=== PATIENT | male | born 2000 | race American Indian/Alaskan Native ===

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

== ENCOUNTER 2020-01-07 03:52 | Emergency (ER) | payer OTHER ==
[2020-01-07 03:57] VITALS: BP 127/74; PULSE 73
[2020-01-07] MEDS ORDERED: MVI, Adult with Vitamin K 10 ML, Folic Acid 1 MG, Thiamine 100 MG in Lactated Ringers 1... IV ONE ×4 (04:04)
[2020-01-07 04:48] LABS: ANION GAP 16.4 mEq/L (7-13); CHLORIDE,CL 107 mmol/L (98-107); SODIUM,NA 147 mmol/L (136-145)
[2020-01-07 04:54] LABS: ACETAMINOPHEN 0 ug/mL (10-30 (Therapeutic))
--- NOTE | 2020-01-07 06:31 | EDM.PDOCBH ---
<Lucrecia Modi - Last Filed: 01/07/20 06:25> ED HPI GENERAL MEDICAL PROBLEM - General Chief Complaint: Behavioral/Psych Stated Complaint: AMBULANCE Time Seen by Provider: 01/07/20 04:05 Source of Information: Reports: Patient, EMS, RN History Limitations: Reports: Intoxication - History of Present Illness INITIAL COMMENTS - FREE TEXT/NARRATIVE: ED via [facility] report of intoxication and having suicidal thoughts for past 2 weeks. Patient has no immediate paln admits dring two Halves the past couple of days and doesn't usually drink. Denied other drug use. Does not answer if previous attempts. - Related Data Allergies Allergy/AdvReac Type Severity Reaction Status Date / Time No Known Allergies Allergy Verified 01/07/20 03:58 Home Meds: Home Meds . [No Known Home Meds] 02/09/15 [History] Past Medical History - Past Health History Medical/Surgical History: Denies Medical/Surgical History HEENT History: Reports: None Cardiovascular History: Reports: None Respiratory History: Reports: None Gastrointestinal History: Reports: None Genitourinary History: Reports: None Musculoskeletal History: Reports: None Other Musculoskeletal History: states prior injury to left shoulder from football Neurological History: Reports: None Psychiatric History: Reports: None Endocrine/Metabolic History: Reports: None Hematologic History: Reports: None Immunologic History: Reports: None Oncologic (Cancer) History: Reports: None Dermatologic History: Reports: None Social & Family History - Tobacco Use Smoking Status *Q: Current Every Day Smoker Years of Tobacco use: 2 Packs/Tins Daily: 0.5 - Caffeine Use Caffeine Use: Reports: None - Alcohol Use Date of Last Drink: 01/07/20 Time of Last Drink: 03:30 - Recreational Drug Use Recreational Drug Use: Yes Drug Use in Last 12 Months: Yes Recreational Drug Type: Reports: Marijuana/Hashish - Living Situation & Occupation Living situation: Reports: with Family Occupation: Student ED ROS GENERAL - Review of Systems Review Of Systems: Comprehensive ROS is negative, except as noted in HPI. ED EXAM, BEHAVIORAL HEALTH - Physical Exam Exam: See Below Exam Limited By: No Limitations General Appearance: Alert, No Apparent Distress Eye Exam: Bilateral Eye: Conjunctival Injection, EOMI Ears: Normal External Exam, Hearing Grossly Normal Nose: Normal Inspection Throat/Mouth: Normal Inspection Head: Atraumatic, Normocephalic Neck: Normal Inspection Respiratory/Chest: No Respiratory Distress, Lungs Clear, Normal Breath Sounds Cardiovascular: Regular Rate, Rhythm GI/Abdominal: Normal Bowel Sounds, Soft, Tender (mild epigastric) Extremities: Normal Inspection, Normal Range of Motion Neurological: Alert, Oriented x 3 Psychiatric: Flat Affect, Poor Eye Contact, Suicidal Thoughts Skin Exam: Warm, Dry, Intact, Signs of self injury (remote scarring) COURSE, BEHAVIORAL HEALTH COMP - Course Vital Signs: Last Vital Signs Temp 98.9 F 01/07/20 03:52 Pulse 73 01/07/20 03:52 Resp 18 01/07/20 03:52 BP 127/74 01/07/20 03:52 Pulse Ox 98 01/07/20 03:52 Orders, Labs, Meds: Laboratory Tests 01/07/20 01/07/20 01/07/20 Range/Units 04:10 04:10 04:10 WBC 8.5 (5.0-10.0) 10^3/uL RBC 5.78 (4.6-6.2) 10^6/uL Hgb 16.9 (14.0-18.0) g/dL Hct 47.9 (40.0-54.0) % MCV 82.9 (80-100) fL MCH 29.2 (27.0-34.0) pg MCHC 35.3 H (33.0-35.0) g/dL Plt Count 336 (150-450) 10^3/uL Neut % (Auto) 53.7 (42.2-75.2) % Lymph % (Auto) 34.7 (20.5-50.1) % Morris % (Auto) 8.9 H (2-8) % Eos % (Auto) 2.2 (1.0-3.0) % Baso % (Auto) 0.5 (0.0-1.0) % Sodium 147 H (136-145) mmol/L Potassium 3.4 L (3.5-5.1) mmol/L Chloride 107 (98-107) mmol/L Carbon Dioxide 27 (21-32) mmol/L Anion Gap 16.4 H (7-13) mEq/L BUN 7 (7-18) mg/dL Creatinine 0.73 (0.70-1.30) mg/dL Est Cr Clr Drug Dosing 156.16 mL/min Estimated GFR (MDRD) > 60 BUN/Creatinine Ratio 9.6 (No establ ref range) Glucose 99 (74-99) mg/dL Calcium 8.1 L (8.5-10.1) mg/dL Total Bilirubin 0.4 (0.2-1.0) mg/dL AST 14 L (15-37) U/L ALT 20 (16-63) U/L Alkaline Phosphatase 89 (46-116) U/L Total Protein 7.8 (6.4-8.2) g/dL Albumin 4.4 (3.4-5.0) g/dL Globulin 3.4 Albumin/Globulin Ratio 1.3 Amylase 24 L (25-115) U/L Lipase 67 L (73-393) U/L Urine Color (YELLOW) Urine Appearance (CLEAR) Urine pH (5.0-9.0) Ur Specific [place] (1.005-1.030) Urine Protein (NEGATIVE) Urine Glucose (UA) (NEGATIVE) Urine Ketones (NEGATIVE) Urine Occult Blood (NEGATIVE) Urine Nitrite (NEGATIVE) Urine Bilirubin (NEGATIVE) Urine Urobilinogen (0.2-1.0) mg/dL Ur Leukocyte Esterase (NEGATIVE) Salicylates < 2.8 L (2.8-20(Therapeutic)) mg/dL Urine Opiates Screen (NEGATIVE) Ur Oxycodone Screen (NEGATIVE) Urine Methadone Screen (NEGATIVE) Acetaminophen 0 L (10-30 (Therapeutic)) ug/mL Ur Barbiturates Screen (NEGATIVE) U Tricyclic Antidepress (NEGATIVE) Ur Phencyclidine Scrn (NEGATIVE) Ur Amphetamine Screen (NEGATIVE) U Methamphetamines Scrn (NEGATIVE) Urine MDMA Screen (NEGATIVE) U Benzodiazepines Scrn (NEGATIVE) Urine Cocaine Screen (NEGATIVE) U Marijuana (THC) Screen (NEGATIVE) Ethyl Alcohol 120 (0) mg/dL 01/07/20 01/07/20 Range/Units 05:01 05:01 WBC (5.0-10.0) 10^3/uL RBC (4.6-6.2) 10^6/uL Hgb (14.0-18.0) g/dL Hct (40.0-54.0) % MCV (80-100) fL MCH (27.0-34.0) pg MCHC (33.0-35.0) g/dL Plt Count (150-450) 10^3/uL Neut % (Auto) (42.2-75.2) % Lymph % (Auto) (20.5-50.1) % Morris % (Auto) (2-8) % Eos % (Auto) (1.0-3.0) % Baso % (Auto) (0.0-1.0) % Sodium (136-145) mmol/L Potassium (3.5-5.1) mmol/L Chloride (98-107) mmol/L Carbon Dioxide (21-32) mmol/L Anion Gap (7-13) mEq/L BUN (7-18) mg/dL Creatinine (0.70-1.30) mg/dL Est Cr Clr Drug Dosing mL/min Estimated GFR (MDRD) BUN/Creatinine Ratio (No establ ref range) Glucose (74-99) mg/dL Calcium (8.5-10.1) mg/dL Total Bilirubin (0.2-1.0) mg/dL AST (15-37) U/L ALT (16-63) U/L Alkaline Phosphatase (46-116) U/L Total Protein (6.4-8.2) g/dL Albumin (3.4-5.0) g/dL Globulin Albumin/Globulin Ratio Amylase (25-115) U/L Lipase (73-393) U/L Urine Color Yellow (YELLOW) Urine Appearance Clear (CLEAR) Urine pH 7.0 (5.0-9.0) Ur Specific [place] 1.020 (1.005-1.030) Urine Protein Negative (NEGATIVE) Urine Glucose (UA) Negative (NEGATIVE) Urine Ketones Negative (NEGATIVE) Urine Occult Blood Negative (NEGATIVE) Urine Nitrite Negative (NEGATIVE) Urine Bilirubin Negative (NEGATIVE) Urine Urobilinogen 0.2 (0.2-1.0) mg/dL Ur Leukocyte Esterase Negative (NEGATIVE) Salicylates (2.8-20(Therapeutic)) mg/dL Urine Opiates Screen Negative (NEGATIVE) Ur Oxycodone Screen Negative (NEGATIVE) Urine Methadone Screen Negative (NEGATIVE) Acetaminophen (10-30 (Therapeutic)) ug/mL Ur Barbiturates Screen Negative (NEGATIVE) U Tricyclic Antidepress Negative (NEGATIVE) Ur Phencyclidine Scrn Negative (NEGATIVE) Ur Amphetamine Screen Negative (NEGATIVE) U Methamphetamines Scrn Negative (NEGATIVE) Urine MDMA Screen Negative (NEGATIVE) U Benzodiazepines Scrn Negative (NEGATIVE) Urine Cocaine Screen Negative (NEGATIVE) U Marijuana (THC) Screen Positive H (NEGATIVE) Ethyl Alcohol (0) mg/dL Medications Discontinued Medications Generic Name Dose Route Start Last Admin Trade Name Ralph PRN Reason Stop Dose Admin Multivitamins/Minerals 10 ml/ 1,011.2 mls @ 999 mls/hr 01/07/20 04:04 05:17 Folic Acid 1 mg/ Thiamine HCl IV 01/07/20 05:04 Infused 100 mg/ Lactated Ringer's ONETIME ONE Infusion Departure - Departure Disposition: Home, Self-Care 01 Clinical Impression: Depressive disorder, Suicidal thoughts, Alcohol abuse - Discharge Information Instructions: Suicidal Feelings: How to Help Yourself, Major Depressive Disorder, Adult, [id number], What You Need to Know About Alcohol Abuse and Dependence, Adult Forms: ED Department Discharge Additional Instructions: Abstain from alcohol use. Follow with Behavioral Health, January 09 as 10:30AM ([facility]). Return to ER if worse at any time. Call the Crisis Line if needed [phone] Sepsis Event Note - Evaluation Sepsis Screening Result: No Definite Risk - Focused Exam Vital Signs: Vital Signs Temp Pulse Resp BP Pulse Ox 01/07/20 03:52 98.9 F 73 18 127/74 98 Date Exam was Performed: 01/07/20 Time Exam was Performed: 06:25 <Jose Juan Williamson - Last Filed: 01/07/20 08:39> COURSE, BEHAVIORAL HEALTH COMP - Course Medical Clearance: 01/07/20 07:00 Pt is medically clear for mental health/crisis evaluation. Discharge vs Psych Eval/Treatment:: 01/07/20 08:05 Brittaney Nuñez from the [facility] arrives to evaluate the pt. She finds the pt may be discharged from the ER and has arranged for the pt to have an intake appointment with mental health for further evaluation and treatment. Departure - Departure Time of Disposition: 08:35 Condition: Good - Discharge Information *PRESCRIPTION DRUG MONITORING PROGRAM REVIEWED*: No *COPY OF PRESCRIPTION DRUG MONITORING REPORT IN PATIENT RENETTA: No Sepsis Event Note - Focused Exam Date Exam was Performed: 01/07/20 Time Exam was Performed: 08:33
== END 2020-01-07 09:10 | disposition home or self-care (01) ==
LOC: DL.ED 03:52
DX: F10.129 Alcohol abuse with intoxication, unspecified (principal); Y90.6 Blood alcohol level of 120-199 mg/100 ml; F32.9 Major depressive disorder, single episode, unspecified; F17.210 Nicotine dependence, cigarettes, uncomplicated
CPT/HCPCS: 36415; 80053; 80305-QW; 80307; 81003; 82150; 83690; 85025; 96365; 99285-25; J3411; J3490; J7120

== ENCOUNTER 2020-06-04 14:05 | Emergency (ER) | payer OTHER ==
[2020-06-04] MEDS ORDERED: Diphtheria,Pertussis(Acell),Tetanus Vaccine 0.5 ML SDV IM ONE (14:32)
[2020-06-04 14:35] VITALS: BP 123/73; PULSE 56
--- NOTE | 2020-06-04 14:37 | EDM.PDOC ---
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 Denies any other injury. Date/year of last Tetanus unknown, but he thinks it was >10yrs ago. Onset: Today, Sudden Duration: Constant Location: Reports: Upper Extremity, Right Quality: Reports: Ache Severity: Mild Improves with: Reports: None Worsens with: Reports: None Associated Symptoms: Reports: No Other Symptoms - Related Data Allergies Allergy/AdvReac Type Severity Reaction Status Date / Time No Known Allergies Allergy Verified 01/07/20 03:58 Home Meds: Home Meds . [No Known Home Meds] 02/09/15 [History] Past Medical History - Past Health History Medical/Surgical History: Denies Medical/Surgical History HEENT History: Reports: None Cardiovascular History: Reports: None Respiratory History: Reports: None Gastrointestinal History: Reports: None Genitourinary History: Reports: None Musculoskeletal History: Reports: None Other Musculoskeletal History: states prior injury to left shoulder from football Neurological History: Reports: None Psychiatric History: Reports: None Endocrine/Metabolic History: Reports: None Hematologic History: Reports: None Immunologic History: Reports: None Oncologic (Cancer) History: Reports: None Dermatologic History: Reports: None Social & Family History - Caffeine Use Caffeine Use: Reports: None - Living Situation & Occupation Living situation: Reports: with Family Occupation: Employed Review of Systems - Review of Systems Review Of Systems: Comprehensive ROS is negative, except as noted in HPI. ED EXAM, GENERAL - Physical Exam Exam: See Below Exam Limited By: No Limitations General Appearance: Alert, WD/WN, No Apparent Distress Respiratory/Chest: No Respiratory Distress Cardiovascular: Normal Peripheral Pulses Extremities: Normal Range of Motion, Normal Capillary Refill, Other (Distal tip of right index finger has a 0.6cm linear superficial laceration, no active bleeding, no FB.). No: Joint Swelling Neurological: Alert, Oriented, No Motor/Sensory Deficits Psychiatric: Normal Mood Skin Exam: Warm, Dry ED TRAUMA EXTREMITY PROCEDURES - Laceration/Wound Repair Right Distal Digit - 2nd (Index) Lac/Wound Length In cm: 0.6 Appearance: Superficial, Linear, Clean Distal NVT: Neuro & Vascular Intact, No Tendon Injury Anesthetic Type: Other (None) Skin Prep: Chlorhexidine (Hibiciens), Saline Saline Irrigation (cc's): 500 Exploration/Debridement/Repair: Wound Explored, In a Bloodless Field, Explored to Base Closed With: Dermabond Drain Placement: No Sterile Dressing Applied: None Tetanus Status Addressed: Yes Complications: No - Splinting Right 2nd Digit Splint Site: distal protector cage splint Pre-Procedure NV Status: Normal Post-Procedure NV Status: Normal Splint Material: Aluminum-Foam Splint Design: Other Applied & Form Fitted By: Nurse Provider Post-Splint Application NV Check: NV Status Normal, Good Position Complications: No Course - Orders/Labs/Meds Orders: Active Orders 24 hr Category Date Time Status Vaccines to be Administered [RC] PER UNIT ROUTINE Care 06/04/20 14:32 Ordered Diphth,Pertuss(Acell),Tet Vac [Adacel] Med 06/04/20 14:32 Once 0.5 ml IM .ONCE ONE - Re-Assessments/Exams Free Text/Narrative Re-Assessment/Exam: 06/04/20 14:40 Rt index finger cleansed and dressed by RN. Departure - Departure Time of Disposition: 14:40 Disposition: Home, Self-Care 01 Condition: Good Clinical Impression: Laceration of right index finger w/o foreign body w/o damage to nail Qualifiers: Encounter type: initial encounter Qualified Code(s): S61.210A - Laceration without foreign body of right index finger without damage to nail, initial encounter - Discharge Information *PRESCRIPTION DRUG MONITORING PROGRAM REVIEWED*: Not Applicable *COPY OF PRESCRIPTION DRUG MONITORING REPORT IN PATIENT RENETTA: Not Applicable Instructions: Sutures, Bradford, or Adhesive Wound Closure Forms: ED Department Discharge Additional Instructions: Follow up in clinic if any further concerns. - My Orders Last 24 Hours: My Active Orders 06/04/20 14:32 Vaccines to be Administered [RC] PER UNIT ROUTINE Diphth,Pertuss(Acell),Tet Vac [Adacel] 0.5 ml IM .ONCE ONE - Assessment/Plan Last 24 Hours: My Active Orders 06/04/20 14:32 Vaccines to be Administered [RC] PER UNIT ROUTINE Diphth,Pertuss(Acell),Tet Vac [Adacel] 0.5 ml IM .ONCE ONE
== END 2020-06-04 15:04 | disposition home or self-care (01) ==
LOC: DL.ED 14:05
DX: S61.210A Laceration without foreign body of right index finger without damage to nail, initial encounter (principal); W26.8XXA Contact with other sharp object(s), not elsewhere classified, initial encounter; Y99.0 Civilian activity done for income or pay
CPT/HCPCS: 12001; 99282

== ENCOUNTER 2020-10-02 12:29 | Emergency (ER) | payer OTHER ==
--- NOTE | 2020-10-02 12:32 | EDM.PDOC ---
ED HPI GENERAL MEDICAL PROBLEM - General Chief Complaint: Abdominal Pain Stated Complaint: AMBULANCE Time Seen by Provider: 10/02/20 12:32 Source of Information: Reports: Patient, Old Records, RN, RN Notes Reviewed History Limitations: Reports: No Limitations - History of Present Illness INITIAL COMMENTS - FREE TEXT/NARRATIVE: Pt arrives from home by [facility] with c/o waking at this morning with generalized upper abdominal pain, nausea, and vomiting. He denies fever, chills, flank pain, dysuria, or constipation. Denies any known COVID exposures. He admits to on watery loose stool today. Now he is also having intense heartburn since vomiting. Pt last ate burrito's at 1900HRS last evening. He rates the pain 7/10. Nothing alleviates or aggravates the pain. Onset: Today Duration: Constant Location: Reports: Abdomen Quality: Reports: Ache Severity: Severe Improves with: Reports: None Worsens with: Reports: None Abdomen Pain Score (Numeric/FACES): 8 - Related Data Allergies Allergy/AdvReac Type Severity Reaction Status Date / Time No Known Allergies Allergy Verified 06/04/20 14:35 Home Meds: Home Meds . [No Known Home Meds] 02/09/15 [History] Past Medical History - Past Health History Medical/Surgical History: Denies Medical/Surgical History HEENT History: Reports: None Cardiovascular History: Reports: None Respiratory History: Reports: None Gastrointestinal History: Reports: None Genitourinary History: Reports: None Musculoskeletal History: Reports: None Other Musculoskeletal History: states prior injury to left shoulder from football Neurological History: Reports: None Psychiatric History: Reports: None Endocrine/Metabolic History: Reports: None Hematologic History: Reports: None Immunologic History: Reports: None Oncologic (Cancer) History: Reports: None Dermatologic History: Reports: None Social & Family History - Family History Family Medical History: No Pertinent Family History - Tobacco Use Tobacco Use Status *Q: Former Tobacco User - Caffeine Use Caffeine Use: Reports: None - Alcohol Use Alcohol Use History: No - Recreational Drug Use Recreational Drug Use: No - Living Situation & Occupation Living situation: Reports: with Family Occupation: Employed ED ROS GENERAL - Review of Systems Review Of Systems: Comprehensive ROS is negative, except as noted in HPI. ED EXAM, GI/ABD - Physical Exam Exam: See Below Exam Limited By: No Limitations General Appearance: Alert, No Apparent Distress, Other (Uncomfortable, but non- toxic appearing) Eyes: Bilateral: Normal Appearance (No scleral icterus) Nose: Normal Inspection, Normal Mucosa, No Blood Throat/Mouth: Normal Inspection, Normal Lips, Normal Voice, No Airway Compromise Head: Atraumatic, Normocephalic Neck: Normal Inspection, Supple, Non-Tender, Full Range of Motion Respiratory/Chest: No Respiratory Distress, Lungs Clear, Normal Breath Sounds, No Accessory Muscle Use, Chest Non-Tender Cardiovascular: Normal Peripheral Pulses, Regular Rate, Rhythm, No Edema GI/Abdominal Exam: Normal Bowel Sounds, Soft, No Organomegaly, No Distention, No Abnormal Bruit, No Mass, Pelvis Stable, Tender (RUQ, epigastric area). No: Guarding, Rigid (Male) Exam: Deferred Rectal (Males) Exam: Deferred Back Exam: Normal Inspection. No: CVA Tenderness (L), CVA Tenderness (R) Extremities: Normal Inspection Neurological: Alert, Oriented, CN II-XII Intact, Normal Cognition, No Motor/Sensory Deficits Psychiatric: Normal Affect, Normal Mood Skin Exam: Warm, Dry, Intact, Normal Color, No Rash Course - Vital Signs Last Recorded V/S: Last Vital Signs Temp 98.8 F 10/02/20 13:02 Pulse 77 10/02/20 13:30 Resp 14 10/02/20 13:02 BP 119/67 10/02/20 13:30 Pulse Ox 100 10/02/20 13:02 - Orders/Labs/Meds Orders: Active Orders 24 hr Category Date Time Status Peripheral IV Care [RC] . DIRECTED Care 10/02/20 12:34 Active UA W/MICROSCOPIC [URIN] Stat Lab 10/02/20 14:23 Results Ondansetron [Zofran] Med 10/02/20 16:10 Once 4 mg IV ONETIME ONE Sodium Chloride 0.9% [Saline Flush] Med 10/02/20 12:33 Active 10 ml FLUSH ASDIRECTED PRN Peripheral IV Insertion Adult [OM.PC] Routine Oth 10/02/20 12:33 Ordered Medication Orders Sodium Chloride (Saline Flush) 10 ml FLUSH ASDIRECTED PRN PRN Reason: Keep Vein Open Labs: Laboratory Tests 10/02/20 10/02/20 10/02/20 Range/Units 12:38 12:38 14:23 WBC 22.2 H (5.0-10.0) 10^3/uL RBC 6.35 H (4.6-6.2) 10^6/uL Hgb 18.9 H D (14.0-18.0) g/dL Hct 51.7 (40.0-54.0) % MCV 81.4 (80-100) fL MCH 29.8 (27.0-34.0) pg MCHC 36.6 H (33.0-35.0) g/dL Plt Count 273 (150-450) 10^3/uL Neut % (Auto) 84.9 H (42.2-75.2) % Lymph % (Auto) 3.2 L (20.5-50.1) % [place] % (Auto) 11.1 H (2-8) % Eos % (Auto) 0.7 L (1.0-3.0) % Baso % (Auto) 0.1 (0.0-1.0) % Sodium 139 (136-145) mmol/L Potassium 3.4 L (3.5-5.1) mmol/L Chloride 99 (98-107) mmol/L Carbon Dioxide 26 (21-32) mmol/L Anion Gap 17.4 H (7-13) mEq/L BUN 14 (7-18) mg/dL Creatinine 1.13 (0.70-1.30) mg/dL Est Cr Clr Drug Dosing 100.04 mL/min Estimated GFR (MDRD) > 60 BUN/Creatinine Ratio 12.4 (No establ ref range) Glucose 143 H (74-99) mg/dL Calcium 9.8 D (8.5-10.1) mg/dL Total Bilirubin 1.2 H (0.2-1.0) mg/dL AST 27 (15-37) U/L ALT 40 (16-63) U/L Alkaline Phosphatase 106 (46-116) U/L Total Protein 9.5 H (6.4-8.2) g/dL Albumin 5.5 H (3.4-5.0) g/dL Globulin 4.0 Albumin/Globulin Ratio 1.38 Amylase 27 (25-115) U/L Lipase 59 L (73-393) U/L Urine Color (YELLOW) Urine Appearance (CLEAR) Urine pH (5.0-9.0) Ur Specific [place] (1.005-1.030) Urine Protein (NEGATIVE) Urine Glucose (UA) (NEGATIVE) Urine Ketones (NEGATIVE) Urine Occult Blood (NEGATIVE) Urine Nitrite (NEGATIVE) Urine Bilirubin (NEGATIVE) Urine Urobilinogen (0.2-1.0) mg/dL Ur Leukocyte Esterase (NEGATIVE) Urine Opiates Screen Negative (NEGATIVE) Ur Oxycodone Screen Negative (NEGATIVE) Urine Methadone Screen Negative (NEGATIVE) Ur Barbiturates Screen Negative (NEGATIVE) U Tricyclic Antidepress Negative (NEGATIVE) Ur Phencyclidine Scrn Negative (NEGATIVE) Ur Amphetamine Screen Negative (NEGATIVE) U Methamphetamines Scrn Negative (NEGATIVE) Urine MDMA Screen Negative (NEGATIVE) U Benzodiazepines Scrn Negative (NEGATIVE) Urine Cocaine Screen Negative (NEGATIVE) U Marijuana (THC) Screen Positive H (NEGATIVE) Ethyl Alcohol < 3 (0) mg/dL 10/02/20 Range/Units 14:23 WBC (5.0-10.0) 10^3/uL RBC (4.6-6.2) 10^6/uL Hgb (14.0-18.0) g/dL Hct (40.0-54.0) % MCV (80-100) fL MCH (27.0-34.0) pg MCHC (33.0-35.0) g/dL Plt Count (150-450) 10^3/uL Neut % (Auto) (42.2-75.2) % Lymph % (Auto) (20.5-50.1) % [place] % (Auto) (2-8) % Eos % (Auto) (1.0-3.0) % Baso % (Auto) (0.0-1.0) % Sodium (136-145) mmol/L Potassium (3.5-5.1) mmol/L Chloride (98-107) mmol/L Carbon Dioxide (21-32) mmol/L Anion Gap (7-13) mEq/L BUN (7-18) mg/dL Creatinine (0.70-1.30) mg/dL Est Cr Clr Drug Dosing mL/min Estimated GFR (MDRD) BUN/Creatinine Ratio (No establ ref range) Glucose (74-99) mg/dL Calcium (8.5-10.1) mg/dL Total Bilirubin (0.2-1.0) mg/dL AST (15-37) U/L ALT (16-63) U/L Alkaline Phosphatase (46-116) U/L Total Protein (6.4-8.2) g/dL Albumin (3.4-5.0) g/dL Globulin Albumin/Globulin Ratio Amylase (25-115) U/L Lipase (73-393) U/L Urine Color Yellow (YELLOW) Urine Appearance Clear (CLEAR) Urine pH 5.5 (5.0-9.0) Ur Specific [place] 1.010 (1.005-1.030) Urine Protein Negative (NEGATIVE) Urine Glucose (UA) Negative (NEGATIVE) Urine Ketones Negative (NEGATIVE) Urine Occult Blood Trace-intact H (NEGATIVE) Urine Nitrite Negative (NEGATIVE) Urine Bilirubin Negative (NEGATIVE) Urine Urobilinogen 0.2 (0.2-1.0) mg/dL Ur Leukocyte Esterase Negative (NEGATIVE) Urine Opiates Screen (NEGATIVE) Ur Oxycodone Screen (NEGATIVE) Urine Methadone Screen (NEGATIVE) Ur Barbiturates Screen (NEGATIVE) U Tricyclic Antidepress (NEGATIVE) Ur Phencyclidine Scrn (NEGATIVE) Ur Amphetamine Screen (NEGATIVE) U Methamphetamines Scrn (NEGATIVE) Urine MDMA Screen (NEGATIVE) U Benzodiazepines Scrn (NEGATIVE) Urine Cocaine Screen (NEGATIVE) U Marijuana (THC) Screen (NEGATIVE) Ethyl Alcohol (0) mg/dL Meds: Medications Generic Name Dose Route Start Last Admin Trade Name Freq PRN Reason Stop Dose Admin Sodium Chloride 10 ml 10/02/20 12:33 Saline Flush FLUSH ASDIRECTED PRN Keep Vein Open Discontinued Medications Generic Name Dose Route Start Last Admin Trade Name Freq PRN Reason Stop Dose Admin Famotidine 20 mg 10/02/20 12:32 10/02/20 12:50 Pepcid IVPUSH 10/02/20 12:33 20 mg ONETIME ONE Administration Hydromorphone HCl 1 mg 10/02/20 12:33 10/02/20 12:59 Dilaudid IVPUSH 10/02/20 12:34 1 mg ONETIME ONE Administration Sodium Chloride 1,000 mls @ 999 mls/hr 10/02/20 12:32 10/02/20 12:49 Normal Saline IV 10/02/20 13:32 999 mls/hr .BOLUS ONE Administration Piperacillin Sod/Tazobactam 100 mls @ 200 mls/hr 10/02/20 13:13 10/02/20 13:43 Sod 3.375 gm/ Sodium Chloride IV 10/02/20 13:42 200 mls/hr ONETIME ONE Administration Sodium Chloride 1,000 mls @ 999 mls/hr 10/02/20 13:13 10/02/20 13:56 Normal Saline IV 10/02/20 14:13 999 mls/hr .BOLUS ONE Administration Iopamidol 100 ml 10/02/20 13:12 10/02/20 13:36 Isovue-300 (61%) IVPUSH 10/02/20 13:13 75 ml ONETIME ONE Administration Ondansetron HCl 4 mg 10/02/20 12:32 10/02/20 12:54 Zofran IV 10/02/20 12:33 4 mg ONETIME ONE Administration - Radiology Interpretation Free Text/Narrative:: CT Abd/Pelvis: no acute findings per Rad. report. - Re-Assessments/Exams Free Text/Narrative Re-Assessment/Exam: 10/02/20 16:10 Pt's abdomen is nontender upon reassessment. No fevers, but some residual nausea. CT Abd/Pelvis was negative. Plan to send pt home with Rx Zofran, and have him f/u in clinic if not completely improved by Oct.06 or return to ER if worse. Departure - Departure Time of Disposition: 16:12 Disposition: Home, Self-Care 01 Condition: Good Clinical Impression: Upper abdominal pain, Viral gastritis - Discharge Information *PRESCRIPTION DRUG MONITORING PROGRAM REVIEWED*: Not Applicable *COPY OF PRESCRIPTION DRUG MONITORING REPORT IN PATIENT RENETTA: Not Applicable Instructions: Gastritis, Adult, [id number], Abdominal Pain, Adult, [id number] Forms: ED Department Discharge Additional Instructions: Rx: Zofran 4mg Rx: Famotidine 20mg Follow up in clinic if not improved by Oct.06. Return to ER if worse at any time. Sepsis Event Note (ED) - Focused Exam Vital Signs: Vital Signs Temp Pulse Resp BP Pulse Ox 10/02/20 13:30 77 119/67 10/02/20 13:02 98.8 F 99 14 124/90 100 - My Orders Last 24 Hours: My Active Orders 10/02/20 12:33 Sodium Chloride 0.9% [Saline Flush] 10 ml FLUSH ASDIRECTED PRN Peripheral IV Insertion Adult [OM.PC] Routine 10/02/20 12:34 Peripheral IV Care [RC] . DIRECTED 10/02/20 14:23 UA W/MICROSCOPIC [URIN] Stat 10/02/20 16:10 Ondansetron [Zofran] 4 mg IV ONETIME ONE - Assessment/Plan Last 24 Hours: My Active Orders 10/02/20 12:33 Sodium Chloride 0.9% [Saline Flush] 10 ml FLUSH ASDIRECTED PRN Peripheral IV Insertion Adult [OM.PC] Routine 10/02/20 12:34 Peripheral IV Care [RC] . DIRECTED 10/02/20 14:23 UA W/MICROSCOPIC [URIN] Stat 10/02/20 16:10 Ondansetron [Zofran] 4 mg IV ONETIME ONE
[2020-10-02] MEDS ORDERED: Sodium Chloride 0.9% 10 ML Syringe FLUSH PRN (12:33)
[2020-10-02] MEDS: Sodium Chloride 0.9% 1,000 ML IV ONE ×2 (12:49→13:56)
[2020-10-02] MEDS: Famotidine 20 MG/2 ML SDV IVPUSH ONE (12:50)
[2020-10-02] MEDS: Ondansetron 4 MG/2 ML SDV IV ONE ×2 (12:54→16:22)
[2020-10-02] MEDS: HYDROmorphone 1 MG/ML Syringe IVPUSH ONE (12:59)
[2020-10-02 13:08] LABS: ANION GAP 17.4 mEq/L (7-13); CHLORIDE,CL 99 mmol/L (98-107); SODIUM,NA 139 mmol/L (136-145)
[2020-10-02 13:31] VITALS: BP 119/67; PULSE 77
[2020-10-02] MEDS: Iopamidol 612 MG/ML 100 ML Bottle IVPUSH ONE (13:36)
[2020-10-02] MEDS: Piperacillin/Tazobactam 3.375 GM in Sodium Chloride 0.9% 100 ML IV ONE (13:43)
--- NOTE | 2020-10-02 13:52 | CT ---
EXAMINATION: Abdomen Pelvis w Cont SEX: Male AGE: 20 years CLINICAL HISTORY: 20-year-old 171 pound male in emergency department complaining of upper abdominal pain. Abnormally elevated WBC 22,000 (total bilirubin 1.2). Scan technique: Volume acquisition of data from the abdomen and pelvis obtained on emergency basis without oral contrast but during intravenous ministration 75 cc nonionic Isovue contrast at 75 cc/s via injector while lying supine on the Siemens multislice scanner [place], [place]. All data archived PACS system for storage, reformatting axial/sagittal/coronal planes and study. Interpretation: Negative exam. 1. Gallbladder clearly demonstrated in the right upper quadrant has uniformly thin wall and shows no sign of pericystic fluid, mucosal wall mass or intraluminal calcified gallstones. Normal appendix RLQ. 2. Homogeneous normal density of the liver. No intrahepatic mass and no abnormal dilatation of the into/extrahepatic biliary ducts. No pancreatitis. No pancreatic mass, calcification or ductal dilatation. 3. Stomach, spleen, adrenal glands and kidneys anatomically correct. No renal cortical mass lesion, inflammatory changes, urolithiasis or signs of obstructive uropathy. Small volume bladder unremarkable. 4. Lung bases clear. Normal cardiac silhouette. No pericardial or pleural effusions. Normal aorta. 5. No abdominal or pelvic mass lesion. No pelvic, mesenteric or retroperitoneal lymphadenopathy. No inflammatory "dirty" peritoneal fat, signs of mechanical bowel obstruction, ascites or free intraperitoneal air. 6. No ventral wall hernias. Lumbar spine unremarkable.
== END 2020-10-02 17:00 | disposition home or self-care (01) ==
LOC: DL.ED 12:29
DX: A08.4 Viral intestinal infection, unspecified (principal); Z87.891 Personal history of nicotine dependence
CPT/HCPCS: 36415; 74177; 80053; 80305; 80307; 81001; 82150; 83690; 85025; 87635; 96365; 96375; 96376; 99284; J1170; J2405; J2543; J3490; J7030; J7050; Q9967; U0002

== ENCOUNTER 2023-01-16 04:42 | Emergency (ER) | payer OTHER ==
[2023-01-16 05:16] LABS: AMPHETAMINES,URINE POSITIVE (NEGATIVE); BARBITURATES,URINE NEGATIVE (NEGATIVE); BENZODIAZEPINE,URINE NEGATIVE (NEGATIVE); MDMA (ECSTASY), URINE POSITIVE (NEGATIVE); METHADONE,URINE NEGATIVE (NEGATIVE); METHAMPHETAMINES,URINE POSITIVE (NEGATIVE); OPIATES,URINE NEGATIVE (NEGATIVE); OXYCODONE,URINE NEGATIVE (NEGATIVE); PHENCYCLIDINE,URINE NEGATIVE (NEGATIVE); TCA,URINE NEGATIVE (NEGATIVE)
[2023-01-16] MEDS: LORazepam 0.5 MG Tab PO ONE (05:22)
[2023-01-16 05:25] VITALS: BP 124/78; PULSE 96
[2023-01-16 05:26] LABS: ANION GAP 19.3 mEq/L (7-13); CHLORIDE,CL 99 mmol/L (98-107); SODIUM,NA 141 mmol/L (136-145)
[2023-01-16 05:27] LABS: ACETAMINOPHEN 0 ug/mL (10-30 (Therapeutic)); ESTIMATED GFR 93 mL/min (>=60)
== END 2023-01-16 05:30 | disposition home or self-care (01) ==
LOC: DL.ED 04:42
DX: F12.90 Cannabis use, unspecified, uncomplicated (principal); F15.90 Other stimulant use, unspecified, uncomplicated
CPT/HCPCS: 36415; 80053; 80143; 80179; 80305-QW; 80307; 81001; 85025; 87086; 99283; 99284; A9270-GY